=== PATIENT | female | born 1955 | race Caucasian/White ===

== ENCOUNTER 2016-06-19 06:09 | Day surgery (SDC) | payer OTHER ==
--- NOTE | ~2016-06-19 | EGD ---
EGD REPORT [facility] [address] [address] NAME: JANA CAGLE : 53 STATUS : REG [facility]#: [id number] AGE: 60 ADM/REG DATE : 06/19/16 MR#: [id number] REPORT SERV DATE: 06/19/16 DICTATED BY: ISIAH CARVAJAL DATE: 06/19/16 REPORT STATUS : Draft TRANSCRIBED BY: [facility] DATE: 06/19/16 Endoscopy Center Patient Name: Jana Cagle Date of : 1955 Attending MD: ISIAH CARVAJAL MD Procedure Date No Time: 06/19/2016 Procedure: Colonoscopy Indications: High risk colon cancer surveillance: Personal history of colonic polyps, Last colonoscopy: February 2013 Referring MD: LISSETTE HOFFMANN II Medicines: See the Anesthesia note for documentation of the administered medications Complications: No immediate complications. Procedure: Pre-Anesthesia Assessment: - ASA Grade Assessment: III - A patient with severe systemic disease. After I obtained informed consent, the scope was passed under direct vision. Throughout the procedure, the patient's blood pressure, pulse, and oxygen saturations were monitored continuously. The PCF [id number] was introduced through the anus and advanced to the terminal ileum, with identification of the appendiceal orifice and IC valve. The colonoscopy was performed without difficulty. The patient tolerated the procedure well. The quality of the bowel preparation was adequate. Lot of spasm Findings: The perianal and digital rectal examinations were normal. Internal hemorrhoids were found during retroflexion and were small. Two flat polyps were found at the hepatic flexure. The polyps were small in size. These polyps were removed with a cold biopsy forceps. Resection and retrieval were complete. A flat polyp was found at the hepatic flexure. The polyp was 10 mm in size. The polyp was removed with a hot snare. Resection and retrieval were complete. Three flat polyps were found in the ascending colon. The polyps were 10 mm in size. These polyps were removed with a hot snare. Resection and retrieval were complete. Two sessile polyps were found in the ascending colon. The polyps were small in size. These polyps were removed with a cold biopsy forceps. Resection and retrieval were complete. Two flat polyps were found in the descending colon. The polyps were small in size. These polyps were removed with a cold biopsy forceps. Resection and retrieval were complete. EGD REPORT [address] [address] NAME: JANA CAGLE : [birth year] [place]US [place] [facility] [place]#: [id number] AGE: 60 ADM/REG DATE : 06/19/16 MR#: [id number] REPORT SERV DATE: 06/19/16 DICTATED BY: ISIAH CARVAJAL DATE: 06/19/16 REPORT STATUS : Draft TRANSCRIBED BY: [employer] DATE: 06/19/16 Impression: - Internal hemorrhoids. - Two small polyps at the hepatic flexure. Resected and retrieved. - One 10 mm polyp at the hepatic flexure. Resected and retrieved. - Three 10 mm polyps in the ascending colon. Resected and retrieved. - Two small polyps in the ascending colon. Resected and retrieved. - Two small polyps in the descending colon. Resected and retrieved. Recommendation: - Patient has a contact number available for emergencies. The signs and symptoms of potential delayed complications were discussed with the patient. Return to normal activities tomorrow. Written discharge instructions were provided to the patient. - Regular diet. - Continue present medications. - Repeat colonoscopy for surveillance based on pathology results. - FOR YOUR BIOPSY RESULTS: Please go to [email or web address] and register to receive your results via the portal. Your biopsy results will be posted there in about 7 to 10 days. IF you do not see result in 10 days, call office. Procedure Code(s): --- Professional --- 86998, Colonoscopy, flexible, proximal to splenic flexure; with removal of tumor(s), polyp(s), or other lesion(s) by snare technique 25785, 59, Colonoscopy, flexible, proximal to splenic flexure; with biopsy, single or multiple Diagnosis Code(s): --- Professional --- K64.8, Other hemorrhoids D12.4, Benign neoplasm of descending colon D12.2, Benign neoplasm of ascending colon D12.3, Benign neoplasm of transverse colon Z86.010, Personal history of colonic polyps CPT copyright 2013 [employer]. All rights reserved. The codes documented in this report are preliminary and upon hris developer review may be revised to meet current compliance requirements. EGD REPORT [address] [address] NAME: JANA CAGLE : [birth year] [place]US : [place] [facility] [place]#: [id number] AGE: 60 ADM/REG DATE : 06/19/16 MR#: [id number] REPORT SERV DATE: 06/19/16 DICTATED BY: ISIAH CARVAJAL DATE: 06/19/16 REPORT STATUS : Draft TRANSCRIBED BY: [employer] DATE: 06/19/16 Isiah Carvajal MD ISIAH CARVAJAL MD 06/19/2016 8:26 AM This report has been signed electronically. Number of Addenda: 0 Note Initiated On: 06/19/2016 7:44 AM Scope Withdrawal Time 0 hours 20 minutes 0 seconds
[~2016-06-19 06:09] MED LIST: ADVAIR115P INH; AVAP150; BENICAR HCT1 TAB PO; BENTYL10 PO; CRESTOR20 MG PO; CYMBALTA60 PO; FISH-EPA1000 MG PO; IRBESARTAN PO; IRON325 MG PO; LORTAB10 PO; NEUR300 PO; NORCO1 TAB PO; PROAIR HFA INH; PROTONIX PO; REQUIP4 MG PO; SYMBICORT 160/41 INH INH; TIMOLOL MAL0.5 % OPH; TIMOPTIC0.5 % OP; TRAZ50 PO; X5 PO
== END 2016-06-19 23:59 | disposition home or self-care (01) ==
LOC: DMU 06:09
PROVIDERS: Internal Medicine Gastroenterology
PROC: 0DBM8ZZ Excision of Descending Colon, Via Natural or Artificial Opening Endoscopic (ICD-10-PCS; 2016-06-19)
PROC: 0DBK8ZZ Excision of Ascending Colon, Via Natural or Artificial Opening Endoscopic (ICD-10-PCS; principal; 2016-06-19 08:00)
PROC: 0DBL8ZZ Excision of Transverse Colon, Via Natural or Artificial Opening Endoscopic (ICD-10-PCS; 2016-06-19 08:00)
DX: Z12.11 Encounter for screening for malignant neoplasm of colon (principal); D12.4 Benign neoplasm of descending colon; D12.2 Benign neoplasm of ascending colon; D12.3 Benign neoplasm of transverse colon; I10 Essential (primary) hypertension; K64.8 Other hemorrhoids; E78.00 Pure hypercholesterolemia, unspecified; I25.10 Atherosclerotic heart disease of native coronary artery without angina pectoris; S35.0 Injury of abdominal aorta; I65.21 Occlusion and stenosis of right carotid artery; Z86.010 Personal history of colon polyps; Z88.1 Allergy status to other antibiotic agents
CPT/HCPCS: 88305